=== PATIENT | male | born 1980 | race Caucasian/White ===

== ENCOUNTER 2016-11-15 07:12 | Emergency (ER) | payer SELFPAY ==
[2016-11-15 07:32] VITALS: BP 168/99
[2016-11-15] MEDS ORDERED: Lidocaine 2% PF * 5 ML VIAL INJ ONE (07:44)
--- NOTE | 2016-11-15 07:49 | UC ---
Laceration HPI - HPI Summary HPI Summary: SUSTAINED LACERATION TO LEFT THUMB TODAY AROUND 6AM WHILE AT WORK. SLIPPED WHILE USING [employer]. WID TDAP 2014. - History Of Current Complaint Chief Complaint: UCLaceration Stated Complaint: LEFT THUMB LAC Time Seen by Provider: 11/15/16 07:26 Hx Obtained From: Patient Laceration Location: Finger - LEFT THUMB Mechanism Of Injury: Sharp Trauma Onset/Duration: Sudden Onset, Lasting Hours, Still Present Severity: Mild Pain Intensity: 2 Pain Scale Used: 0-10 Numeric Aggravating Factors: Nothing Related History: Occupational Injury, Dominant Hand Right - Allergies/Home Medications Allergies/Adverse Reactions: Allergies Allergy/AdvReac Type Severity Reaction Status Date / Time No Known Allergies Allergy Unverified 11/15/16 07:32 Home Medications: Home Medications Cetirizine HCl [All Day Allergy] 10 mg PO 11/15/16 [History] Fluticasone NASAL SPRAY 50MCG* [Flonase NASAL SPRAY 50MCG*] 2 spray BOTH NARES DAILY 11/15/16 [History Confirmed 11/15/16] Omeprazole CAP* [Prilosec CAP* 20 MG] 20 mg PO DAILY 11/15/16 [History Confirmed 11/15/16] PMH/Surg Hx/FS Hx/Imm Hx - Additional Past Medical History Additional PMH: SEASONAL ALLERGIES GI/ History: Gastroesophageal Reflux - Surgical History Surgical History: None - Social History Alcohol Use: Weekly Substance Use Type: None Smoking Status (MU): Former Smoker Type: Cigarettes Length of Time of Smoking/Using Tobacco: 10 yrs When Did the Patient Quit Smoking/Using Tobacco: 2014 - Immunization History Most Recent Tetanus Shot: 2014 Review of Systems Constitutional: Negative Skin: Other - LACERATION LEFT THUMB Respiratory: Negative Cardiovascular: Negative Gastrointestinal: Negative All Other Systems Reviewed And Are Negative: Yes Physical Exam Triage Information Reviewed: Yes Appearance: Well-Appearing, No Pain Distress, Well-Nourished Vital Signs: Initial Vital Signs Temp 98.3 F 11/15/16 07:25 Pulse 72 11/15/16 07:25 Resp 16 11/15/16 07:25 BP 168/99 11/15/16 07:25 Pulse Ox 96 11/15/16 07:25 Vital Signs Reviewed: Yes Eyes: Positive: Conjunctiva Clear ENT: Positive: Hearing grossly normal Respiratory: Positive: No respiratory distress, No accessory muscle use Cardiovascular: Positive: Pulses Normal Abdomen Description: Positive: Soft Musculoskeletal: Positive: ROM Intact, No Edema Neurological: Positive: Alert Psychological: Positive: Age Appropriate Behavior Skin: Positive: Other - 3.2CM LINEAR LACERATION LEFT THUMB PAD. Negative: rashes Laceration Repair - Laceration Repair 1 Description: Linear Laceration Size After Repair: Length (cm) - 3.2CM, Width (mm) - 0MM, Depth (mm) - 3MM Modified For Repair: No Type Injection: Local Anesthesia Used: 2.0% Lido Irrigation With Pressure Irrigation Device: Yes Closure Material: Sutures - 11 SIMPLE INTERRUPTED Closure Method: Single Layer Suture Of: Skin Suture Type: Other - 5-0 SURGIPRO Laceration Course/Dx - Differential Dx - Laceration/Wound Provider Diagnoses: LACERATION REPAIR LEFT THUMB Discharge - Discharge Plan Condition: Stable Disposition: HOME Patient Education Materials: Finger Laceration (ED) Forms: *Work Release Referrals: Ishan Vázquez, [Doctor of Osteopathy] - If Needed Additional Instructions: KEEP DRESSINGS IN PLACE AND DRY FOR THE FIRST 24 HRS. THEN YOU MAY REMOVE THE DRESSING AND GENTLY CLEANSE WITH SOAP AND WATER. PAT DRY AND RE-BANDAGE. APPLY THIN LAYER ANTIBIOTIC OINTMENT UNDER BANDAGE FOR FIRST 3-4 DAYS ONLY. CHANGE BANDAGE DAILY AND NEEDED IF IT BECOMES SOILED OR WET. SEEK FOLLOW-UP IF YOU DEVELOP SPREADING REDNESS OF THE SKIN, PURULENT DRAINAGE, FEVER, INCREASED PAIN OR ANY OTHER CONCERNING SYMPTOMS. RETURN FOR SUTURE REMOVAL IN 10 DAYS
== END 2016-11-15 09:59 | disposition home or self-care (01) ==
LOC: EDUNIT# → UCEAST 07:12 → MERGE 07:12 → UCEAST 09:59
DX: S61.012A Laceration without foreign body of left thumb without damage to nail, initial encounter (principal); W27.8XXA Contact with other nonpowered hand tool, initial encounter; Y93.9 Activity, unspecified; Y92.9 Unspecified place or not applicable; Y99.9 Unspecified external cause status; K21.9 Gastro-esophageal reflux disease without esophagitis; Z87.891 Personal history of nicotine dependence
CPT/HCPCS: 12002; 99201; G0463

== ENCOUNTER 2016-11-25 07:07 | Emergency (ER) | payer SELFPAY ==
[2016-11-25 07:16] VITALS: BP 148/98
--- NOTE | 2016-11-25 07:52 | UC ---
jakub Humphrey Timothy, scribed for Krunal Bourgeois MD on 11/25/16 at 0726 . HPI Wound/Suture Re-check - HPI Summary HPI Summary: Silvino Saunders is a 36 yo male presenting to [facility] for removal of 11 sutures placed in his left thumb on 11/15/16 S/P cutting himself with pliers. Per triage , he denies any problems with the sutures. He denies any current pain. He is right hand dominant. He denies any purulent discharge. He states he has full ROM , but notes some numbness in the thumb. He states he has been washing the area qd. His MHx includes GERD, seasonal allergies, former tobacco use. - History Of Current Complaint Stated Complaint: SUTURE REMOVAL Time Seen by Provider: 11/25/16 07:36 Hx Obtained From: Patient Onset/Duration: Gradual Onset, Lasting Days Surgical Site: left thumb Severity: Moderate Pain Intensity: 0 Pain Scale Used: 0-10 Numeric - Allergies/Home Medications Allergies/Adverse Reactions: Allergies Allergy/AdvReac Type Severity Reaction Status Date / Time No Known Allergies Allergy Verified 11/25/16 07:16 PMH/Surg Hx/FS Hx/Imm Hx GI/ History: Gastroesophageal Reflux - Surgical History Surgical History: None - Family History Known Family History: Positive: Cardiac Disease, Diabetes Negative: Hypertension - Social History Alcohol Use: Weekly Substance Use Type: None Smoking Status (MU): Former Smoker Type: Cigarettes Length of Time of Smoking/Using Tobacco: 10 yrs When Did the Patient Quit Smoking/Using Tobacco: 2014 - Immunization History Most Recent Tetanus Shot: 2014 Review of Systems Constitutional: Negative Skin: Other - sutures left thumb Eyes: Negative ENT: Negative Respiratory: Negative Cardiovascular: Negative Gastrointestinal: Negative Genitourinary: Negative Motor: Negative Neurovascular: Negative Musculoskeletal: Negative Neurological: Numbness - left thumb Psychological: Negative All Other Systems Reviewed And Are Negative: Yes Physical Exam Triage Information Reviewed: Yes Vital Signs: Initial Vital Signs Temp 98.2 F 11/25/16 07:13 Pulse 86 11/25/16 07:13 Resp 16 11/25/16 07:13 BP 148/98 11/25/16 07:13 Pulse Ox 97 11/25/16 07:13 Vital Signs Reviewed: Yes - Additional Comments The patient is well-nourished in no acute distress and in no acute pain. The skin is warm and dry and skin color reflects adequate perfusion. There is a healed laceration along the left thumb, with full ROM and decreased sensation. There is no dehiscence. HEENT: The head is normocephalic and atraumatic. The pupils are equal and reactive. The conjunctivae are clear and without drainage. Nares are patent and without drainage. Mouth reveals moist mucous membranes and the throat is without erythema and exudate. The external ears are intact. The ear canals are patent and without drainage. The tympanic membranes are intact. Neck is supple with full range of motion and non-tender. There are no carotid bruits. There is no neck vein distension. Respiratory: Chest is non-tender. Lungs are clear to auscultation and breath sounds are symmetrical and equal. Cardiovascular: Heart is regular rate and rhythm. There is no murmur or rub auscultated. There is no peripheral edema and pulses are symmetrical and equal. Abdomen: The abdomen is soft and non-tender. There are normal bowel sounds heard in all four quadrants and there is no organomegaly palpated. Musculoskeletal: There is no back pain noted. Extremities are non-tender with full range of motion. There is good capillary refill. There is no peripheral edema or calf tenderness elicited. Neurological: Patient is alert and oriented to person, place and time. The patient has symmetrical motor strength in all four extremities. Cranial nerves are grossly intact. Deep tendon reflexes are symmetrical and equal in all four extremities. Psychiatric: The patient has an appropriate affect and does not exhibit any anxiety or depression. Procedures - Procedure Summary Procedure Summary: 11 simples stitches removed from left thumb using sterile technique with no complications. Pt tolerated procedure well. Course/Dx - Course Course Of Treatment: Silvino Saunders is a 36 yo male presenting to [facility] for removal of sutures placed in his left thumb on 11/15/16. Pt medication list reviewed this visit. After clinical examination and removal of sutures, he will be discharged home with left thumb suture removal and healed thumb laceration with appropriate instructions and follow up. - Differential Dx - Laceration/Wound Differential Diagnoses: Suture Removal Provider Diagnoses: suture removal left thumb, healed thumb laceration Discharge - Discharge Plan Condition: Stable Disposition: HOME Patient Education Materials: Stitches Removal (ED) Referrals: [facility] [Outside] - If Needed Additional Instructions: Please follow up with the primary care physician provided regarding your visit to urgent care today. Return to urgent care or the emergency department with any new or recurring symptoms. The documentation as recorded by the jakub renae Timothy accurately reflects the service I personally performed and the decisions made by , Krunal Bourgeois MD.
== END 2016-11-25 07:51 | disposition home or self-care (01) ==
LOC: UCEAST 07:07
DX: Z48.02 Encounter for removal of sutures (principal); Z87.891 Personal history of nicotine dependence
CPT/HCPCS: 99211; G0463